=== PATIENT | male | born 1985 | race American Indian/Alaskan Native ===

== ENCOUNTER 2018-03-30 01:58 | Emergency (ER) | payer OTHER ==
[2018-03-30 02:17] VITALS: RESP 16; TEMP 98.2; O2SAT 100
[2018-03-30] MEDS ORDERED: Albuterol 0.083% Inhal Sol (2.5 mg/3 mL) UD INH STA (02:58)
--- NOTE | 2018-03-30 03:04 | ED PDOC ---
Arrival/HPI - General Chief Complaint: Upper Extremity Problem/Injury Time Seen by Provider: 03/30/18 02:31 Historian: Patient - History of Present Illness Narrative History of Present Illness (Text): 03/30/18 02:58 32 year old male, whose past medical history includes allergies, who presents to the Emergency department complaining of shortness of breath. Patient notes associated sinus congestion. Patient denies any fevers, chills, chest pain, abdominal pain, nausea, vomiting, diarrhea, back pain, neck pain, headache, dizziness, or any other complaint. Time/Duration: Other (today) Symptom Onset: Gradual Symptom Course: Unchanged Activities at Onset: Light Context: Home Past Medical History - Provider Review Nursing Documentation Reviewed: Yes - Infectious Disease Hx of Infectious Diseases: None - Neurological Hx Seizures: Yes - Psychiatric Hx Depression: Yes Hx Substance Use: No - Anesthesia Hx Anesthesia: No Family/Social History - Physician Review Nursing Documentation Reviewed: Yes Family/Social History: Unknown Family HX Smoking Status: Never Smoked Hx Alcohol Use: No Hx Substance Use: No Allergies/Home Meds Allergies/Adverse Reactions: Allergies No Known Allergies Allergy (Verified 03/30/18 02:16) Review of Systems - Physician Review All systems were reviewed & negative as marked: Yes - Review of Systems Constitutional: Normal Eyes: Normal ENT: Sinus Congestion Respiratory: SOB Cardiovascular: Normal. absent: Chest Pain Gastrointestinal: Normal. absent: Abdominal Pain, Diarrhea, Nausea, Vomiting Genitourinary Male: Normal. absent: Dysuria, Frequency Musculoskeletal: Normal. absent: Back Pain, Neck Pain Skin: Normal. absent: Rash Neurological: Normal. absent: Headache, Dizziness Endocrine: Normal Hemo/Lymphatic: Normal Psychiatric: Normal Physical Exam - Physical Exam Narrative Physical Exam (Text): 03/30/18 03:02 Gen: VS reviewed, alert, well developed, well nourished, nontoxic, mild distress. ENT: boggy nasal turbulence bilaterally. normal pharynx. Eye: EOMI, PERRL. Neck: no JVD, supple, no adenopathy. CV: regular rate, regular rhythm, no rubs, no murmur, no gallops, S1, S2, pulses equal and strong. Pulm: no distress, clear to auscultation, no wheeze, no rhonchi, breath sounds equal, no rales. Abd: soft, nontender, no guarding, no rebound, no rigidity, normal bowel sounds. Ext: no edema. Skin: good color, no rash, no cyanosis. Psych: responds appropriately to questions, normal affect. Neuro: oriented x 3, CN2-12 intact grossly, motor intact, sensation intact. Vital Signs Reviewed: Yes Vital Signs Temp Pulse Resp BP Pulse Ox 03/30/18 02:17 98.2 F 68 16 124/71 100 Temperature: Afebrile Blood Pressure: Normal Pulse: Regular Respiratory Rate: Normal Appearance: Positive for: Well-Appearing, Non-Toxic, Comfortable Pain Distress: None Mental Status: Positive for: Alert and Oriented X 3 Medical Decision Making ED Course and Treatment: 03/30/18 03:03 Impression: 32 year old male presents to the emergency department complaining of shortness of breath and sinus congestion. Plan: -- Albuterol -- Reassess and disposition Progress Notes: - Medication Orders Current Medication Orders: Albuterol Sulfate (Albuterol 0.083% Inhal Saundra (2.5 Mg/3 Ml) Ud) 2.5 mg INH STAT STA Stop: 03/30/18 02:59 - Scribe Statement The provider has reviewed the documentation as recorded by the Scribcaitlyn Paulino All medical record entries made by the Scribe were at my direction and personally dictated by me. I have reviewed the chart and agree that the record accurately reflects my personal performance of the history, physical exam, medical decision making, and the department course for this patient. I have also personally directed, reviewed, and agree with the discharge instructions and disposition. Disposition/Present on Arrival - Present on Arrival Any Indicators Present on Arrival: No History of DVT/PE: No History of Uncontrolled Diabetes: No Urinary Catheter: No History of Decub. Ulcer: No History Surgical Site Infection Following: None - Disposition Have Diagnosis and Disposition been Completed?: Yes Diagnosis: Allergic rhinitis, Paresthesia, Tobacco dependence Disposition: HOME/ ROUTINE Disposition Time: 03:06 Patient Plan: Discharge Patient Problems: Current Active Problems Problem Status Onset Allergic rhinitis Acute Paresthesia Acute Tobacco dependence Acute Condition: STABLE Discharge Instructions (ExitCare): Seasonal Allergies in Adults, Quitting Smoking for Older Adults, Paresthesias (DC) Print Language: FRENCH Additional Instructions: Follow up with a primary care doctor. SATNAM DILLON, thank you for letting us take care of you today. Your provider was Dr. Juanpablo Betts and you were treated for stuffy nose. The emergency medical care you received today was directed at your acute symptoms. If you were prescribed any medication, please fill it and take as directed. It may take several days for your symptoms to resolve. Return to the Emergency Department if your symptoms worsen, do not improve, or if you have any other problems. Please contact your doctor or call one of the physicians/clinics you have been referred to that are listed on the Patient Visit Information form that is included in your discharge packet. Bring any paperwork you were given at discharge with you along with any medications you are taking to your follow up visit. Our treatment cannot replace ongoing medical care by a primary care provider outside of the emergency department. Thank you for allowing the [facility] team to be part of your care today. If you had an X-Ray or CT scan: A Radiologist will review the ED reading if any change in treatment is needed we will contact you. If you had a blood, urine, or wound culture: It will take several days for the results, if any change in treatment is needed we will contact you. If you had an STI test: It will take 48 hours for the results. Please call after 1 week if you have not heard back. Referrals: [facility] [Outside] - Follow up with primary Daysi Bethea MD [Primary Care Provider] - Follow up with primary Ines Thomas MD [Medical Doctor] - Follow up with primary Forms: [employer] (Icelandic)
[2018-03-30 03:35] VITALS: BP 131/80; PULSE 72
== END 2018-03-30 03:34 | disposition home or self-care (01) ==
LOC: ED 01:58 → MERGE 01:58 → ED 03:34
DX: J30.9 Allergic rhinitis, unspecified (principal); R20.2 Paresthesia of skin; F17.200 Nicotine dependence, unspecified, uncomplicated

== ENCOUNTER 2018-04-16 11:53 | Emergency (ER) | payer OTHER ==
--- NOTE | 2018-04-16 12:21 | ED PDOC ---
Arrival/HPI - General Chief Complaint: Shortness Of Breath Time Seen by Provider: 04/16/18 12:05 Historian: Patient - History of Present Illness Time/Duration: < week (4 days) Symptom Onset: Gradual Associated Symptoms (Text): 32yo male, history of seizure disorder and currently on tegretol, comes to Emergency room for evaluation of shortness of breath, cough with green phlegm and a subjective fever x 4 days. patient otherwise denies any chest pain, abdominal pain, and offers no additional medical complaints. Past Medical History - Provider Review Nursing Documentation Reviewed: Yes - Infectious Disease Hx of Infectious Diseases: None - Cardiac Hx Cardiac Disorders: No - Pulmonary Hx Respiratory Disorders: Yes Hx Asthma: Yes - Neurological Hx Seizures: Yes - HEENT Hx HEENT Disorder: No - Renal Hx Renal Disorder: No - Endocrine/Metabolic Hx Endocrine Disorders: No - Hematological/Oncological Hx Blood Disorders: No - Integumentary Hx Dermatological Disorder: No - Musculoskeletal/Rheumatological Hx Musculoskeletal Disorders: No - Gastrointestinal Hx Gastrointestinal Disorders: No - Genitourinary/Gynecological Hx Genitourinary Disorders: No - Psychiatric Hx Substance Use: No - Anesthesia Hx Anesthesia: No Family/Social History - Physician Review Nursing Documentation Reviewed: Yes Family/Social History: No Known Family HX Smoking Status: Light Smoker < 10 Cigarettes Daily Hx Alcohol Use: Yes Frequency of alcohol use: Socially Hx Substance Use: No Allergies/Home Meds Allergies/Adverse Reactions: Allergies No Known Allergies Allergy (Verified 04/16/18 12:00) Review of Systems - Review of Systems Constitutional: absent: Fatigue, Weight Change, Fevers ENT: absent: Tinnitus, TMJ Pain Respiratory: SOB, Cough, Sputum Cardiovascular: absent: Chest Pain Gastrointestinal: absent: Abdominal Pain, Constipation, Diarrhea, Nausea, Vomiting Genitourinary Male: absent: Dysuria, Frequency Neurological: absent: Headache, Dizziness Physical Exam Vital Signs Reviewed: Yes Vital Signs Temp Pulse Resp BP Pulse Ox 04/16/18 14:00 72 18 120/78 100 04/16/18 12:40 98.5 F 78 19 116/72 98 04/16/18 12:13 18 99 Temperature: Afebrile Blood Pressure: Normal Pulse: Regular Respiratory Rate: Normal Appearance: Positive for: Well-Appearing, Non-Toxic, Comfortable Pain Distress: None Mental Status: Positive for: Alert and Oriented X 3 - Systems Exam Head: Present: Atraumatic, Normocephalic Pupils: Present: PERRL Extroacular Muscles: Present: EOMI Conjunctiva: Present: Normal Mouth: Present: Moist Mucous Membranes Pharnyx: No: ERYTHEMA, EXUDATE, TONSILS ENLARGED Neck: Present: Normal Range of Motion Respiratory/Chest: Present: Clear to Auscultation, Good Air Exchange. No: Respiratory Distress, Accessory Muscle Use Cardiovascular: Present: Regular Rate and Rhythm, Normal S1, S2. No: Murmurs Back: Present: Normal Inspection Upper Extremity: Present: Normal Inspection Lower Extremity: Present: Normal Inspection Neurological: Present: Speech Normal Skin: Present: Warm, Dry, Normal Color. No: Rashes Psychiatric: Present: Alert, Oriented x 3, Normal Insight, Normal Concentration Medical Decision Making ED Course and Treatment: Impression: Cough, shortness of breath, r/o influenza Plan: -- Chest X-Ray -- Toradol 30mg IM -- Reassess and disposition Progress Notes: 04/16/18 12:51 Patient has normal physical exam and normal vitals. Cxray negative. Denies chest pain. Perc negative. Presentation consistent with viral uri. Instructed to rest and take motrin or tylenol and follow-up with PMD 04/16/18 12:59 Prior to discharge, patient now reporting he has not had a bowel movement x 4 days however reports he is able to pass gas. On re-exam, abdomen is soft, and non-tender. Low suspicion for SBO however KUB ordered to r/o. 04/16/18 13: 10 Date of service: 04/16/2018 HISTORY: cough COMPARISON: No prior. TECHNIQUE: Chest PA and lateral FINDINGS: LUNGS: No active pulmonary disease. PLEURA: No significant pleural effusion identified. No pneumothorax apparent. CARDIOVASCULAR: Normal. OSSEOUS STRUCTURES: No significant abnormalities. VISUALIZED UPPER ABDOMEN: Normal. OTHER FINDINGS: None. IMPRESSION: No active disease. 04/16/18 13:20 HISTORY: constipation COMPARISON: No prior. FINDINGS: BOWEL: Normal. No obstruction. No free air. Mild to moderate fecal retention BONES: Normal. OTHER FINDINGS: None. IMPRESSION: Mild constipation 04/16/18 14:27 Patient tolerating po. Instructed to follow-up with PMD for GI referral - RAD Interpretation Radiology Orders: 04/16/18 12:06 CHEST TWO VIEWS (PA/LAT) [RAD] Stat 04/16/18 12:58 ABDOMEN (FLAT PLATE) 1VIEW [RAD] Stat - Medication Orders Current Medication Orders: Discontinued Medications Ketorolac Tromethamine (Toradol) 60 mg IM STAT STA Stop: 04/16/18 12:18 Last Admin: 04/16/18 13:01 Dose: 60 mg MAR Pain Assessment Document 04/16/18 13:01 EQ (Rec: 04/16/18 13:01 EQ [id number]) Pain Reassessment Is this a pain reassessment? No Sleep Is patient sleeping during reassessment? No Presence of Pain Presence of Pain Yes IM Administration Charges Document 04/16/18 13:01 EQ (Rec: 04/16/18 13:01 EQ [id number]) Charges for Administration # of IM Administrations 1 - Scribe Statement The provider has reviewed the documentation as recorded by the Sharlaibe Monique Melvin Provider Scribe Attestation: All medical record entries made by the Scribe were at my direction and personally dictated by me. I have reviewed the chart and agree that the record accurately reflects my personal performance of the history, physical exam, medical decision making, and the department course for this patient. I have also personally directed, reviewed, and agree with the discharge instructions and disposition. Disposition/Present on Arrival - Present on Arrival Any Indicators Present on Arrival: No History of DVT/PE: No History of Uncontrolled Diabetes: No Urinary Catheter: No History of Decub. Ulcer: No History Surgical Site Infection Following: None - Disposition Have Diagnosis and Disposition been Completed?: Yes Diagnosis: Viral URI with cough, Constipation Disposition: HOME/ ROUTINE Disposition Time: 12:52 Patient Plan: Discharge Patient Problems: Current Active Problems Problem Status Onset Viral URI with cough Acute Constipation Acute Condition: GOOD Discharge Instructions (ExitCare): Viral Upper Respiratory Infection, Adult (DC ) Additional Instructions: Follow-up with PMD within 2 days. Return to ED if condition worsens. Tylenol or motrin for fever. Take miralax for constipation Prescriptions: Polyethylene Glycol 3350 [Miralax] 17 gm PO DAILY #3 dose Referrals: Daysi Bethea MD [Primary Care Provider] - Follow up with primary Forms: [employer] (Sami), WORK NOTE
[2018-04-16 12:41] VITALS: TEMP 98.5
--- NOTE | 2018-04-16 13:11 | RAD ---
Date of service: 04/16/2018 HISTORY: cough COMPARISON: No prior. TECHNIQUE: Chest PA and lateral FINDINGS: LUNGS: No active pulmonary disease. PLEURA: No significant pleural effusion identified. No pneumothorax apparent. CARDIOVASCULAR: Normal. OSSEOUS STRUCTURES: No significant abnormalities. VISUALIZED UPPER ABDOMEN: Normal. OTHER FINDINGS: None. IMPRESSION: No active disease.
--- NOTE | 2018-04-16 13:21 | RAD ---
Date of service: 04/16/2018 HISTORY: constipation COMPARISON: No prior. FINDINGS: BOWEL: Normal. No obstruction. No free air. Mild to moderate fecal retention BONES: Normal. OTHER FINDINGS: None. IMPRESSION: Mild constipation
[2018-04-16 14:01] VITALS: BP 120/78; PULSE 72; RESP 18; O2SAT 100
== END 2018-04-16 14:05 | disposition home or self-care (01) ==
LOC: ED 11:53
DX: J06.9 Acute upper respiratory infection, unspecified (principal); K59.00 Constipation, unspecified; R05 Cough; F17.210 Nicotine dependence, cigarettes, uncomplicated; G40.909 Epilepsy, unspecified, not intractable, without status epilepticus
CPT/HCPCS: 71046; 74018; 96372; 99284; J1885

== ENCOUNTER 2018-05-06 23:21 | Emergency (ER) | payer OTHER ==
[2018-05-06 23:30] VITALS: BMI 25.9
[2018-05-06 23:33] VITALS: BP 135/99; PULSE 72; RESP 18; TEMP 98; O2SAT 100
--- NOTE | 2018-05-06 23:37 | ED PDOC ---
Arrival/HPI - General Time Seen by Provider: 05/06/18 23:23 Historian: Patient - History of Present Illness Narrative History of Present Illness (Text): 05/06/18 23:33 A 32 year old male is brought into the emergency department by EMS for further evaluation after being found sleeping on the light rail. He admits to one drink of alcohol this evening and denies any drug use. The patient denies fevers, chills, headache, dizziness, sore throat, cough, chest pain, shortness of breath, dyspnea on exertion, abdominal pain, nausea, vomiting, diarrhea, neck/back pain, urinary/bowel changes or any other somatic complaint. Time/Duration: Prior to Arrival Symptom Onset: Sudden Symptom Course: Unchanged Activities at Onset: Rest, Light Context: Other (Ligth Rail) Past Medical History - Provider Review Nursing Documentation Reviewed: Yes - Infectious Disease Hx of Infectious Diseases: None - Cardiac Hx Cardiac Disorders: No - Pulmonary Hx Respiratory Disorders: Yes Hx Asthma: Yes - Neurological Hx Seizures: Yes - HEENT Hx HEENT Disorder: No - Renal Hx Renal Disorder: No - Endocrine/Metabolic Hx Endocrine Disorders: No - Hematological/Oncological Hx Blood Disorders: No - Integumentary Hx Dermatological Disorder: No - Musculoskeletal/Rheumatological Hx Musculoskeletal Disorders: No - Gastrointestinal Hx Gastrointestinal Disorders: No - Genitourinary/Gynecological Hx Genitourinary Disorders: No - Psychiatric Hx Substance Use: No - Anesthesia Hx Anesthesia: No Family/Social History - Physician Review Nursing Documentation Reviewed: Yes Family/Social History: No Known Family HX Smoking Status: Light Smoker < 10 Cigarettes Daily Hx Alcohol Use: Yes Hx Substance Use: No Allergies/Home Meds Allergies/Adverse Reactions: Allergies No Known Allergies Allergy (Verified 04/16/18 12:00) Home Medications: Home Meds Medication Instructions Recorded Confirmed No Known Home Med 05/06/18 05/06/18 Review of Systems - Physician Review All systems were reviewed & negative as marked: Yes - Review of Systems Constitutional: absent: Fevers ENT: absent: Sore Throat Respiratory: absent: SOB, Cough Cardiovascular: absent: Chest Pain, GONZALEZ Gastrointestinal: absent: Abdominal Pain, Stool Changes, Diarrhea, Nausea, Vomiting Genitourinary Male: absent: Urinary Output Changes Musculoskeletal: absent: Back Pain, Neck Pain Neurological: absent: Headache, Dizziness Physical Exam Appearance: Positive for: Well-Appearing, Comfortable Pain Distress: None Mental Status: Positive for: Alert and Oriented X 3 - Systems Exam Head: Present: Atraumatic, Normocephalic Pupils: Present: PERRL Extroacular Muscles: Present: EOMI Conjunctiva: Present: Normal Mouth: Present: Moist Mucous Membranes Neck: Present: Normal Range of Motion Respiratory/Chest: Present: Clear to Auscultation, Good Air Exchange. No: Respiratory Distress, Accessory Muscle Use Cardiovascular: Present: Regular Rate and Rhythm, Normal S1, S2. No: Murmurs Abdomen: No: Tenderness, Distention, Peritoneal Signs Back: Present: Normal Inspection Upper Extremity: Present: Normal Inspection. No: Cyanosis, Edema Lower Extremity: Present: Normal Inspection. No: Edema Neurological: Present: GCS=15, CN II-XII Intact, Speech Normal Skin: Present: Warm, Dry, Normal Color. No: Rashes Psychiatric: Present: Alert, Oriented x 3, Normal Insight, Normal Concentration Medical Decision Making ED Course and Treatment: 05/06/18 23:36 Impression: A 32 year old male is brought into the emergency department for further evaluation after being found sleeping on the light rail. Plan: -- Reassess and disposition Progress Notes: 05/06/18 23:44: Patient eloped. - Scribe Statement The provider has reviewed the documentation as recorded by the Sharlaibe Yessenia Lyons Provider Scribe Attestation: All medical record entries made by the Scribe were at my direction and personally dictated by me. I have reviewed the chart and agree that the record accurately reflects my personal performance of the history, physical exam, medical decision making, and the department course for this patient. I have also personally directed, reviewed, and agree with the discharge instructions and disposition. Disposition/Present on Arrival - Present on Arrival Any Indicators Present on Arrival: No History of DVT/PE: No History of Uncontrolled Diabetes: No Urinary Catheter: No History Surgical Site Infection Following: None - Disposition Have Diagnosis and Disposition been Completed?: Yes Diagnosis: Alcohol abuse Disposition: ELOPEMENT - ER ONLY Disposition Time: 00:01 Condition: STABLE Forms: [employer] (Telugu)
== END 2018-05-07 00:11 | disposition left against medical advice (07) ==
LOC: ED 23:21
DX: F10.10 Alcohol abuse, uncomplicated (principal)